=== PATIENT | female | born 1945 | race Caucasian/White ===

== ENCOUNTER 2017-12-02 10:21 | Outpatient (CLI) | payer MEDICARE ==
--- NOTE | 2017-12-02 11:26 | MRI ---
MRI LUMBAR SPINE NONCONTRAST: CLINICAL HISTORY: Lumbar spinal stenosis. Pain. COMPARISON: No prior comparison imaging. FINDINGS: There is heterogeneous marrow signal with areas of intrinsic T1 hyperintensity throughout the lumbar spine, indicating areas of interosseous hemangioma and/or focal fat deposition. There is an incomple tely assessed exophytic cyst of the kidneys bilaterally. Multilevel moderate bilateral facet degener ative hypertrophy is seen. No acute compression fracture. No significant subluxation. L5-S1: Disk osteophyte and bilateral facet joint hypertrophy are present with mild narrowing of the central canal and mild right foraminal narrowing. No significant left foraminal stenosis. L4-L5: Trace spondylolisthesis is present. There is a broad-based disk osteophyte with severe centr al canal stenosis. There are small, extraspinal synovial cysts about the right degenerate facet join t. Moderate left and mild right neural foraminal stenosis is present. L3-L4: There is mild ventral cerebrospinal fluid effacement due to disk osteophyte. No high grade f oraminal stenosis on the right. There is mild left foraminal narrowing. L2-L3: There is a disk osteophyte with mild effacement of the thecal sac and minimal bilateral neura l foraminal narrowing. L1-L2: No high grade central canal or foraminal compromise. IMPRESSION: 1. Multilevel degenerative change of the lumbar spine, as outlined above. 2. Incompletely assessed cystic structures of each kidney. Renal ultrasound would be appropriate as the next step in evaluation, in an attempt to further characterize. POS: IMER
== END 2017-12-02 10:22 | disposition home or self-care (01) ==
LOC: TBSIIMAG 10:21
PROVIDERS: ATTEND Neurological Surgery
DX: M48.061 Spinal stenosis, lumbar region without neurogenic claudication (principal); M47.896 Other spondylosis, lumbar region
CPT/HCPCS: 72148

== ENCOUNTER 2017-12-15 10:41 | Outpatient (CLI) | payer MEDICARE ==
[2017-12-15 12:33] LABS: Hemoglobin 14.7 g/dL (12.0-16.0); Mean Corpuscular Hemoglobin 31.4 pg (27.0-31.0); Mean Corpuscular Volume 89.7 fL (78.0-98.0); Mean Platelet Volume 7.6 fL (7.4-10.4); Platelet Count 190 thou/uL (130-400); RBC Distribution Width 12.5 % (11.5-14.5); Red Blood Cell (RBC) Count 4.69 mill/uL (4.20-5.40); White Blood Cell (WBC) Count 8.4 thou/uL (4.8-10.8)
[2017-12-15 12:55] LABS: Anion Gap 12 mmol/L (10-20); BUN (Urea Nitrogen) 31 mg/dL (9.8-20.1); Calc. Creatinine Clearance 0 mL/min (70-130); Calcium 10.1 mg/dL (7.8-10.44); Carbon Dioxide 21 mmol/L (23-31); Chloride 109 mmol/L (98-107); Estimated GFR-MDRD 59; Glucose 96 mg/dL (80-115); Potassium 4.3 mmol/L (3.5-5.1); Sodium 138 mmol/L (136-145)
== END 2017-12-15 10:42 | disposition home or self-care (01) ==
LOC: LABBT 10:41
PROVIDERS: ATTEND Neurological Surgery
DX: Z01.818 Encounter for other preprocedural examination (principal); M43.16 Spondylolisthesis, lumbar region
CPT/HCPCS: 80048; 85027; 87081; 93005; 93010

== ENCOUNTER 2017-12-15 11:00 | Inpatient (IN) | payer MEDICARE ==
[2017-12-15 10:58] VITALS: BMI 51.2
[2017-12-21] MEDS ORDERED: CEFAZOLIN/Water 2 GM/20 ML SYRINGE ONE (08:50)
[2017-12-21] MEDS ORDERED: Ondansetron HCl/PF 4 MG/2 ML Vial ONE (09:27)
[2017-12-21] MEDS ORDERED: Glycopyrrolate 0.2 MG/ML 5 ML SYRINGE ONE (09:27)
[2017-12-21] MEDS ORDERED: PROPOFOL 200 MG/20 ML VIAL ONE (09:27)
[2017-12-21] MEDS ORDERED: PHENYLEPHRINE-NS 100 MCG/ML 10 ML SYRINGE ONE (09:27)
[2017-12-21] MEDS ORDERED: Lidocaine 1% PF 5 ML VIAL ONE (09:27)
[2017-12-21] MEDS ORDERED: Dexamethasone 20 MG/5 ML VIAL ONE (09:27)
[2017-12-21] MEDS ORDERED: Sodium Chloride 0.9% 10 ML ONE (09:56)
[2017-12-21] MEDS ORDERED: Fentanyl 250 MCG/5 ML VIAL ONE (11:07)
[2017-12-21] MEDS ORDERED: Fentanyl 100 MCG/2 ML VIAL ONE (13:05)
[2017-12-21] MEDS ORDERED: Promethazine HCl 25 MG/ML VIAL SLOW IVP PRN ×2 (13:06→13:07)
[2017-12-21] MEDS ORDERED: Ondansetron HCl/PF 4 MG/2 ML Vial IVP PRN ×3 (13:06→15:24)
[2017-12-21] MEDS ORDERED: Promethazine HCl 25 MG/ML VIAL IM PRN ×3 (13:06→15:18)
--- NOTE | 2017-12-21 13:31 | OP ---
DATE OF PROCEDURE: 12/21/2017 SURGEON: Darren Lance M.D. FRUIT SPRAYER: Gregorio Cox PROCEDURES: L4-5 laminectomy, posterolateral arthrodesis, demineralized bone matrix, cancellous bone chips and BMP. PROCEDURE IN DETAIL: The patient was brought to the operating room and intubated. She was rolled in prone position on gel-filled chest rolls. Incision made exposing L4 and L5 bilaterally and our leve l was confirmed by x-ray. The procedure was very difficult given her very large body habitus and ext ensive bloody oozing throughout the case. We performed complete L5 and inferior L4 laminectomy, comp letely decompressing the neural elements. I ultimately attempted, but then aborted placement of pedi angela screws given the large body habitus, the poor visualization due to active bloody oozing, and quit e soft bones noted on laminectomy. We next prepared the posterolateral surfaces for the purpose of a rthrodesis and a combination of cancellous bone chips, local morselized autograft, and BMP on Gelfoam was laid in the posterolateral surfaces for the purpose of arthrodesis. Vancomycin powder was then applied. A drain was left in place. The wound was closed in anatomic layers.
[2017-12-21] MEDS ORDERED: Milk Of Magnesia 30 ML UDCUP PO PRN (15:18)
[2017-12-21] MEDS ORDERED: diphenhydrAMINE 25 MG CAP PO PRN (15:18)
[2017-12-21] MEDS ORDERED: Mag-Al 1200 mg/1200 mg/30 ML UDCUP PO PRN (15:18)
[2017-12-21] MEDS ORDERED: Morphine 4 MG/ML Carpuject SLOW IVP PRN (15:18)
[2017-12-21] MEDS ORDERED: traMADol HCl 50 MG TAB PO PRN (15:18)
[2017-12-21] MEDS ORDERED: tiZANidine HCl 4 MG TAB PO PRN (15:18)
[2017-12-21] MEDS ORDERED: diphenhydrAMINE 50 MG/ML VIAL IVP PRN (15:18)
[2017-12-21] MEDS ORDERED: Promethazine HCl 12.5 MG SUPP PR PRN (15:18)
[2017-12-21] MEDS ORDERED: HYDROcodone/Acetaminophen 10/325 mg Tablet PO PRN (15:18)
[2017-12-21] MEDS ORDERED: Promethazine 25 MG TAB PO PRN (15:18)
[2017-12-21] MEDS ORDERED: Morphine 4 MG/ML VIAL SLOW IVP PRN (15:25)
[2017-12-21] MEDS: HYDROcodone/Acetaminophen 10/325 mg Tablet PO PRN ×2 (15:58→21:05)
[2017-12-21] MEDS: Sodium Chloride 0.9% 1,000 ML IV SCH (15:59)
--- NOTE | 2017-12-21 17:57 | CON ---
DATE OF CONSULTATION: 12/21/2017 PRIMARY CARE PHYSICIAN: Alise Alvarez PA-C REQUESTING DOCTOR: Darren Lance M.D. SAP GATHERER: Roney House MD REASON FOR CONSULTATION: Medical management, status post L4-L5 decompression and fusion. HISTORY OF PRESENT ILLNESS: Ms. Corona is a 72-year-old female who appears much younger than her s tated age who is postop day 0 status post L4-L5 laminectomy for decompression and instrumentation wit h fusion. Postoperatively, she is feeling well and getting her oral pain medication. She denies any known intr aoperative complications. No fevers or chills. No nausea and vomiting. No diarrhea, constipation. No chest pain or difficulty breathing. She does have a history of hypertension, pneumonia, few months ago, GERD, and degenerative joint dise ase, but no other chronic medical problems. She has no other current complaints. PAST MEDICAL HISTORY: 1. Hypertension. 2. Community-acquired pneumonia on 07/2017. 3. Gastroesophageal reflux disease. 4. Lumbar spondylolisthesis. 5. Degenerative joint disease. PAST SURGICAL HISTORY: 1. Open cholecystectomy, remotely. 2. JAMESON-BSO remotely. 3. x1 remotely. 4. Tonsillectomy remotely. HOME MEDICATIONS: 1. Tylenol No. 3 as needed. 2. Vitamin C 500 mg p.o. at bedtime. 3. Biotin daily. 4. Vitamin D3 5000 units at bedtime. 5. Diclofenac 75 mg p.o. b.i.d. 6. Flaxseed oil 1000 mg daily. 7. Losartan 50 mg daily. 8. Multivitamin daily. 9. Protonix 40 mg daily. 10. Turmeric 1000 mg daily. ALLERGIES: NKDA. SOCIAL HISTORY: Significant for occasional alcohol, but no tobacco. No history of IV drug use. She is , monogamous. Her accompanies her in the room. FAMILY HISTORY: Negative for hypertension, coronary artery disease and multiple types of cancers. SOCIAL HISTORY: Negative. REVIEW OF SYSTEMS: A 12-point review of systems was performed, negative for all systems except as pe r HPI. PHYSICAL EXAMINATION: VITAL SIGNS: Temperature 97.6, pulse 67, blood pressure 126/76, respiratory rate 18, satting 95% on room air. GENERAL: She is awake. She is alert. She is oriented x3. She is a well-developed, well-nourished, obese white female, appears to be in zero distress. HEENT: Normocephalic, atraumatic. Pupils equal, round, reactive to light bilaterally. Mucous membr anes are moist. There are no visible lesions. No thrush. NECK: Supple. No lymphadenopathy, no JVD, no thyromegaly. She has normal carotid upstroke. I do n ot appreciate bruits. LUNGS: Clear anteriorly. No wheezes, no rales, no rhonchi. She has good air movement. Symmetrical chest excursion. No prolonged expiratory phase. CARDIOVASCULAR: Normal S1, S2. No S3 or S4. No audible murmurs. ABDOMEN: Obese, it is nontender, nondistended, no masses, no organomegaly. EXTREMITIES: No cyanosis, no clubbing with trace pedal edema. SKIN: Warm, moist, and well perfused. She has no other rashes or lesions. Her lumbar wound was not currently examined. MUSCULOSKELETAL: Large joints appear normal. No evidence of inflammation or palpable joint effusion s. NEUROLOGIC: Cranial nerves II-XII grossly intact. She has a normal speech pattern, she has no focal deficits, 5/5 strength in all 4 extremities. PREOPERATIVE LABORATORIES: A few days ago shows sodium of 138, potassium 4.3, chloride 109, bicarb 2 1, BUN 31, creatinine 0.94, glucose 96, and calcium of 10.1. CBC showed a white count of 8.4, hemoglobin is 14.7, hematocrit of 42.1, platelet count is 190,000. ASSESSMENT AND PLAN: 1. Essential hypertension. 2. Gastroesophageal reflux disease. 3. Degenerative joint disease. 4. Recent community-acquired pneumonia. 5. Lumbar spondylolisthesis, status post L4-L5 decompression and fusion. We will continue home medi cations. We will follow along with you in the hospital. Do not anticipate any complicated course. She is scheduled to be sent home tomorrow. Thank you very much for this consult.
[2017-12-21] MEDS: traMADol HCl 50 MG TAB PO PRN (18:08)
[2017-12-21] MEDS: CEFAZOLIN/Water 2 GM/20 ML SYRINGE SLOW IVP SCH (20:59)
[2017-12-21] MEDS ORDERED: Ascorbic Acid 500 mg Chewable Tablet PO SCH (21:00)
[2017-12-22] MEDS: Sodium Chloride 0.9% 1,000 ML IV SCH (04:52)
[2017-12-22] MEDS: CEFAZOLIN/Water 2 GM/20 ML SYRINGE SLOW IVP SCH (04:52)
[2017-12-22] MEDS ORDERED: CEFAZOLIN/Water 2 GM/20 ML SYRINGE SLOW IVP SCH (07:00)
--- NOTE | 2017-12-22 07:20 | DIS ---
DATE OF ADMISSION: 12/21/2017 DATE OF DISCHARGE: 12/22/2017 HOSPITAL COURSE: Patient is a 72-year-old female, status post L4-L5 decompression and fusi on for lumbar stenosis. No hardware was placed intraoperatively, but BMP was used. Postoperatively, she was admitted to the med/surg floor where her pain was well controlled. She was tolerating a reg ular diet and voiding appropriately. She has been ambulating without difficulty in the department. DRAGAN drain had decreasing output and was removed on postop day #1. She is wearing an LSO brace for any out of bed activities. We will plan to dismiss to home today. I have discussed home care precautio ns and reason to reach out to us sooner. We will plan to follow up with the patient in 2 weeks. She has been provided prescriptions for [place], Zanaflex, and Keflex.
[2017-12-22] MEDS ORDERED: FLAXSEED OIL PO SCH (09:00)
[2017-12-22] MEDS ORDERED: TUMERIC ROOT EXTRACT PO SCH (09:00)
[2017-12-22] MEDS ORDERED: Multivit, Therapeutic 1 TAB PO SCH (09:00)
[2017-12-22] MEDS ORDERED: BIOTIN 2500 MCG PO SCH (09:00)
[2017-12-22] MEDS ORDERED: Losartan 25 MG TAB PO SCH (09:00)
[2017-12-22 11:17] VITALS: BP 117/67; TEMP 98.1
[2017-12-22] MEDS: traMADol HCl 50 MG TAB PO PRN (12:21)
--- NOTE | 2017-12-22 12:55 | PDOC.PN ---
- Subjective Encounter Start Date: 12/22/17 Encounter Start Time: 10:20 no pain at rest, mild pain with movement. No F/C, no N/V/D/C, no CP or sOB, BP well controlled. anticipated D/C later today All systems reviewed and neg x as above - Objective MAR Reviewed: Yes Vital Signs & Weight: Vital Signs (12 hours) Temp Pulse Resp BP Pulse Ox 12/22/17 11:16 98.1 F 81 18 117/67 94 L 12/22/17 08:00 97.9 F 83 18 119/69 95 12/22/17 04:43 98.3 F 83 17 96/63 96 Weight Weight 280 lb I&O: 12/21/17 12/22/17 12/23/17 06:59 06:59 06:59 Output Total 60 Balance -60 Radiology Reviewed by me: Yes EKG Reviewed by me: Yes Phys Exam - Physical Examination Constitutional: NAD HEENT: PERRLA, moist MMs, sclera anicteric, oral pharynx no lesions Neck: no nodes, no JVD, supple, full ROM Respiratory: no wheezing, no rales, no rhonchi, clear to auscultation bilateral Cardiovascular: RRR, no significant murmur, no rub Gastrointestinal: soft, non-tender, no distention, positive bowel sounds Musculoskeletal: no edema, pulses present Neurological: non-focal, normal sensation, moves all 4 limbs Lymphatic: no nodes Psychiatric: normal affect, A&O x 3 Skin: no rash, normal turgor, cap refill <2 seconds Dx/Plan (1) HTN (hypertension) Code(s): I10 - ESSENTIAL (PRIMARY) HYPERTENSION Status: Chronic Qualifiers: Hypertension type: essential hypertension Qualified Code(s): I10 - Essential (primary) hypertension (2) GERD (gastroesophageal reflux disease) Code(s): K21.9 - GASTRO-ESOPHAGEAL REFLUX DISEASE WITHOUT ESOPHAGITIS Status: Chronic Qualifiers: Esophagitis presence: without esophagitis Qualified Code(s): K21.9 - Gastro -esophageal reflux disease without esophagitis (3) Spondylolisthesis at L4-L5 level Code(s): M43.16 - SPONDYLOLISTHESIS, LUMBAR REGION Status: Chronic - Plan cont current plan of care, PT/OT, out of bed/ambulate * . anticipate d/C today
== END 2017-12-22 13:00 | disposition home or self-care (01) | DRG 460 ==
LOC: SURG A 12-21 07:48 → SURG B 12-21 13:36
PROVIDERS: ADMIT Neurological Surgery; ATTEND Neurological Surgery
PROC: 0SG0071 Fusion of Lumbar Vertebral Joint with Autologous Tissue Substitute, Posterior Approach, Posterior Column, Open Approach (ICD-10-PCS; principal; 2017-12-21)
PROC: 00NY0ZZ Release Lumbar Spinal Cord, Open Approach (ICD-10-PCS; 2017-12-21)
PROC: 3E0U0GB Introduction of Recombinant Bone Morphogenetic Protein into Joints, Open Approach (ICD-10-PCS; 2017-12-21)
DX: M43.16 Spondylolisthesis, lumbar region (principal); I10 Essential (primary) hypertension; K21.9 Gastro-esophageal reflux disease without esophagitis; M48.062 Spinal stenosis, lumbar region with neurogenic claudication; M19.90 Unspecified osteoarthritis, unspecified site; Z87.01 Personal history of pneumonia (recurrent)
CPT/HCPCS: A4216; C1768; G8978-GP-CI; G8979-GP-CI; G8980-GP-CI; J0131; J3010; J3370; J3490